=== PATIENT | male | born 1945 | race Caucasian/White ===

== ENCOUNTER 2020-06-27 15:38 | Inpatient (IN) | payer MEDICARE ==
[~2020-06-27] VITALS: Ht 188 cm; Wt 140.8 kg
--- NOTE | 2020-06-27 16:05 | NUR ---
ANDREI PACE FROM [facility] FOR HYPOXIA. PT REPORTS PNEUMONIA DX X2 WEEKS AGO WHICH PT HAD COMPLETED A 10 DAY COURSE OF ABX. PT REPORTS RELIEF FROM SOB AND CHEST PRESSURE 4 DAYS INTO ABX. NOW WORSENING SOB, PERSISTENT COUGH. PT ON 2L NC, RESPIRATIONS EVEN AND UNLABORED. SOMEWHAT LABORED WITH EXERTION. PT ON [employer] COORDINATOR, SPO2, BP CUFF. AWAITING MICHAEL OSEGUERA.
--- NOTE | 2020-06-27 16:15 | NUR ---
PT UP TO BEDSIDE COMMODE INDEPENDENTLY. DENIES FURTHER NEEDS AT THIS TIME. CALL LIGHT IN REACH, TISSUE PROVIDED.
--- NOTE | 2020-06-27 16:20 | NUR ---
REPORT TO VESNA DANIELLE.
[2020-06-27] MEDS ORDERED: LISINOPRIL PO (16:26)
[2020-06-27] MEDS ORDERED: ASPI81TA45 PO (16:26)
[2020-06-27] MEDS ORDERED: WATER PILL PO (16:26)
[2020-06-27] MEDS ORDERED: SODIUM CHLORIDE FLUSH 10ML SYR IVF ONE (16:30)
[2020-06-27 16:45] LABS: BASOPHILS % (AUTO) 1 % (0-1); EOSINOPHILS % (AUTO) 3 % (1-7); LYMPHOCYTES % (AUTO) 11 % (22-44); MEAN CORPUSCULAR HEMOGLOBIN 29.2 pg (27.5-34.5); MEAN PLATELET VOLUME 6.9 fL (7.4-10.4); MONOCYTES % (AUTO) 11 % (2-9); NEUTROPHILS % (AUTO) 75 % (42-75); PLATELET COUNT 465 x10^3/uL (130-400); RED BLOOD COUNT 4.37 x10^6/uL (4.38-5.82); RED CELL DISTRIBUTION WIDTH 14.3 % (9.4-14.8)
[2020-06-27 16:47] LABS: MD NO
[2020-06-27 16:57] LABS: ALANINE AMINOTRANSFERASE 15 U/L (12-78); ALBUMIN 2.8 g/dL (3.4-5.0); ANION GAP 4 mmol/L (5-15); CALCIUM 9.5 mg/dL (8.5-10.1); CHLORIDE 103 mmol/L (98-107); CREATININE 0.95 mg/dL (0.7-1.3)
[2020-06-27] MEDS ORDERED: DEXAMETHASONE 4 MG/ML, 1ML IVPush ONE (17:00)
[2020-06-27] MEDS ORDERED: CEFTRIAXONE PMX 1GM/50ML 50 ML IVPB ONE (17:00)
[2020-06-27] MEDS ORDERED: PLEASE ENTER ALLERGIES MC SCH (17:00)
[2020-06-27] MEDS ORDERED: DOXYCYCLINE 100MG TABLET PO ONE (17:00)
[2020-06-27 17:01] LABS: ALKALINE PHOSPHATASE 72 U/L (45-117); BILIRUBIN,TOTAL 0.4 mg/dL (0.2-1.0); TOTAL PROTEIN 7.4 g/dL (6.4-8.2); TROPONIN I < 0.015 ng/mL (0.000-0.045)
[2020-06-27] MEDS ORDERED: CEFTRIAXONE PMX 1GM/50ML 50 ML ONE (17:15)
[2020-06-27] MEDS ORDERED: DEXAMETHASONE 4 MG/ML, 5ML ONE (17:15)
[2020-06-27] MEDS ORDERED: DOXYCYCLINE 100MG TABLET ONE (17:15)
[2020-06-27 17:31] LABS: D-DIMER (DIC) 2.35 ug/mlFEU (0.00-0.52); PROTIME 11.3 Seconds (9.6-11.5)
--- NOTE | 2020-06-27 18:29 | NUR ---
PT ABLE TO USE URINAL AT BEDSIDE WITHOUT ISSUE. BELONGINGS BAGGED AT BEDSIDE. DENIES ANY NEEDS OR CONCERNS, CALL LIGHT IN REACH.
[2020-06-27] MEDS ORDERED: DOCUSATE 100 MG CAPSULE PO PRN (20:30)
[2020-06-27] MEDS ORDERED: morphine SULFATE 10 MG/ML, 1ML IVPush PRN (20:30)
[2020-06-27] MEDS ORDERED: ACETAMINOPHEN 325 MG TABLET PO PRN (20:30)
[2020-06-27] MEDS ORDERED: ONDANSETRON 2MG/ML, 2ML IVPush PRN (20:30)
[2020-06-27] MEDS ORDERED: TEMAZEPAM 15 MG CAPSULE PO PRN (20:30)
[2020-06-27] MEDS ORDERED: ENALAPRILAT 1.25 MG/ML, 2ML IVPush PRN (20:30)
[2020-06-27] MEDS ORDERED: ENOXAPARIN 40 MG/0.4 ML SQ SCH (20:30)
[2020-06-27] MEDS ORDERED: HYDROcodone/APAP 5/325 TABLET PO PRN (20:30)
[2020-06-27] MEDS ORDERED: METHOCARBAMOL 500 MG TABLET PO PRN (20:30)
[2020-06-27] MEDS ORDERED: GUAIFENESIN/DM 200-20MG, 10ML UDC PO PRN (20:30)
[2020-06-27] MEDS ORDERED: PHARMACY MAY ADJ FOR RENAL FX MC PRN ×2 (20:30)
[2020-06-27] MEDS: FAMOTIDINE 20 MG TABLET PO SCH (21:00)
[2020-06-27] MEDS: ASCORBIC ACID 500 MG TABLET PO SCH (21:00)
[2020-06-27] MEDS: PRAZOSIN 1 MG CAPSULE PO SCH (21:00)
[2020-06-27] MEDS ORDERED: ENOXAPARIN 40 MG/0.4 ML ONE (21:28)
[2020-06-27] MEDS ORDERED: ASCORBIC ACID 500 MG TABLET ONE (21:28)
[2020-06-27] MEDS ORDERED: FAMOTIDINE 20 MG TABLET ONE (21:30)
--- NOTE | 2020-06-27 22:56 | NUR ---
Patient moved to a hospital bed for comfort. VSS, Call cortez within reach, and bed in low position. Patient was given turkey sandwich and chips at approx 2200. Offers no further complaints. will con't to monitor patient.
--- NOTE | 2020-06-27 23:28 | NUR ---
PT INADVERTENLY TOOK HIS O2 OFF, SATS DOWN TO 85%, PLACED BACK ON SATS UP.
--- NOTE | 2020-06-28 01:24 | NUR ---
SLEEPING, RR EQUAL AND UNLABORED. WILL CONTINUE TO MONITOR.
[2020-06-28 05:35] LABS: ANION GAP 5 mmol/L (5-15); CALCIUM 9.2 mg/dL (8.5-10.1); CHLORIDE 103 mmol/L (98-107); CREATININE 0.89 mg/dL (0.7-1.3); IRON LEVEL 25 mcg/dL (65-175)
[2020-06-28 05:36] LABS: BASOPHILS % (AUTO) 0 % (0-1); EOSINOPHILS % (AUTO) 0 % (1-7); LYMPHOCYTES % (AUTO) 10 % (22-44); MEAN CORPUSCULAR HEMOGLOBIN 29.2 pg (27.5-34.5); MEAN CORPUSCULAR HGB CONC 32.9 g/dL (33.2-36.2); MONOCYTES % (AUTO) 7 % (2-9); NEUTROPHILS % (AUTO) 83 % (42-75); PLATELET COUNT 461 x10^3/uL (130-400)
[2020-06-28 06:02] LABS: % IRON SATURATION 14 % (20-55); TOTAL IRON BINDING CAPACITY 176 mcg/dL (250-450)
[2020-06-28 06:21] LABS: MD SCAN
--- NOTE | 2020-06-28 06:21 | NUR ---
Pt used bedside commode independently. Patient had a large BM at that time. Offers no further complaints at this time. Patient back in bed, call light within reach. VSS
[2020-06-28] MEDS ORDERED: DEXAMETHASONE 4 MG TABLET ONE (07:26)
[2020-06-28] MEDS: DEXAMETHASONE 4 MG TABLET PO SCH ×2 (07:33→16:24)
--- NOTE | 2020-06-28 07:40 | NUR ---
VSS. PT ON 2L IN ROOM. COMPLAINTS OF MILD PAIN. GIVEN MORNING MEDICATION. WCTM.
--- NOTE | 2020-06-28 07:46 | NUR ---
Report given to VESNA Womack.
[2020-06-28] MEDS ORDERED: TAMSULOSIN 0.4 MG CAP.ER.24H PO SCH (09:00)
[2020-06-28] MEDS: CHOLECALCIFEROL 400 UNITS TABLET PO SCH (09:34)
[2020-06-28] MEDS: ZINC SULFATE 220 MG CAPSULE PO SCH (09:35)
[2020-06-28] MEDS: ENOXAPARIN 30 MG/0.3 ML SQ SCH ×2 (09:35→21:39)
[2020-06-28] MEDS: FAMOTIDINE 20 MG TABLET PO SCH ×2 (09:35→21:37)
[2020-06-28] MEDS: FINASTERIDE 5 MG TABLET PO SCH (09:35)
[2020-06-28] MEDS: metFORMIN 500 MG TABLET PO SCH ×2 (09:35→16:23)
[2020-06-28] MEDS: LISINOPRIL 20 MG TABLET PO SCH (09:35)
[2020-06-28] MEDS: ASCORBIC ACID 500 MG TABLET PO SCH ×2 (09:35→21:36)
[2020-06-28] MEDS ORDERED: METF500T17 PO (10:34)
[2020-06-28 13:12] VITALS: BP 143/73
[2020-06-28] MEDS: DIVALPROEX 125 MG CAP.SPRINK PO SCH ×2 (13:57→21:37)
[2020-06-28] MEDS: AMPICILLIN/SULBACTAM 3 GM in SODIUM CHLORIDE 0.9% 100 ML IV SCH ×2 (13:57→20:03)
[2020-06-28] MEDS: GABAPENTIN 100 MG CAPSULE PO SCH ×3 (13:57→21:37)
[2020-06-28] MEDS ORDERED: CEFTRIAXONE PMX 1GM/50ML 50 ML IVPB SCH (17:00)
[2020-06-28] MEDS ORDERED: AZITHROMYCIN 500 MG TABLET PO SCH (17:00)
[2020-06-28] MEDS ORDERED: DOXY100T PO (17:13)
[2020-06-28] MEDS ORDERED: ALBU90AE INH (17:13)
[2020-06-28 20:26] VITALS: BP 143/67
[2020-06-28] MEDS: PRAZOSIN 1 MG CAPSULE PO SCH (21:37)
[2020-06-28] MEDS: TAMSULOSIN 0.4 MG CAP.ER.24H PO SCH (21:37)
[2020-06-28] MEDS: INSULIN LISPRO 100 UNITS/ML, PEN SQ-INSULIN SCH (21:38)
[2020-06-29 00:57] VITALS: BP 148/77
[2020-06-29] MEDS: AMPICILLIN/SULBACTAM 3 GM in SODIUM CHLORIDE 0.9% 100 ML IV SCH ×4 (01:16→19:36)
[2020-06-29] MEDS: DIVALPROEX 125 MG CAP.SPRINK PO SCH ×3 (06:16→21:11)
[2020-06-29] MEDS: metFORMIN 500 MG TABLET PO SCH ×2 (07:35→16:39)
[2020-06-29] MEDS: DEXAMETHASONE 4 MG TABLET PO SCH (07:35)
[2020-06-29 07:40] VITALS: BP 147/76
[2020-06-29] MEDS: INSULIN LISPRO 100 UNITS/ML, PEN SQ-INSULIN SCH ×4 (08:00→21:12)
[2020-06-29] MEDS: FINASTERIDE 5 MG TABLET PO SCH (08:10)
[2020-06-29] MEDS: ASCORBIC ACID 500 MG TABLET PO SCH ×2 (08:10→21:10)
[2020-06-29] MEDS: CHOLECALCIFEROL 400 UNITS TABLET PO SCH (08:10)
[2020-06-29] MEDS: ZINC SULFATE 220 MG CAPSULE PO SCH (08:10)
[2020-06-29] MEDS: ENOXAPARIN 30 MG/0.3 ML SQ SCH ×2 (08:11→21:12)
[2020-06-29] MEDS: LISINOPRIL 20 MG TABLET PO SCH (08:11)
[2020-06-29] MEDS: GABAPENTIN 100 MG CAPSULE PO SCH ×3 (08:11→21:10)
[2020-06-29] MEDS: FAMOTIDINE 20 MG TABLET PO SCH ×2 (08:11→21:10)
[2020-06-29 13:28] VITALS: BP 131/70
[2020-06-29 20:02] VITALS: BP 148/69
[2020-06-29] MEDS: GUAIFENESIN ER 600 MG TABLET PO SCH (21:10)
[2020-06-29] MEDS: TAMSULOSIN 0.4 MG CAP.ER.24H PO SCH (21:11)
[2020-06-29] MEDS: PRAZOSIN 1 MG CAPSULE PO SCH (21:11)
[2020-06-29 23:16] VITALS: BP 128/57
[2020-06-30] MEDS: AMPICILLIN/SULBACTAM 3 GM in SODIUM CHLORIDE 0.9% 100 ML IV SCH ×4 (02:39→19:58)
[2020-06-30 05:25] LABS: BASOPHILS % (AUTO) 1 % (0-1); EOSINOPHILS % (AUTO) 3 % (1-7); LYMPHOCYTES % (AUTO) 16 % (22-44); MEAN CORPUSCULAR HEMOGLOBIN 28.4 pg (27.5-34.5); MEAN CORPUSCULAR HGB CONC 32.2 g/dL (33.2-36.2); MEAN PLATELET VOLUME 6.9 fL (7.4-10.4); MONOCYTES % (AUTO) 9 % (2-9); NEUTROPHILS % (AUTO) 72 % (42-75); PLATELET COUNT 506 x10^3/uL (130-400); RED BLOOD COUNT 4.69 x10^6/uL (4.38-5.82); RED CELL DISTRIBUTION WIDTH 14.2 % (9.4-14.8)
[2020-06-30 05:38] LABS: ANION GAP 6 mmol/L (5-15); CALCIUM 9.4 mg/dL (8.5-10.1); CHLORIDE 99 mmol/L (98-107)
[2020-06-30 05:39] LABS: CREATININE 1.02 mg/dL (0.7-1.3)
[2020-06-30] MEDS: DIVALPROEX 125 MG CAP.SPRINK PO SCH ×3 (05:39→19:59)
[2020-06-30 05:41] LABS: MD NO
[2020-06-30] MEDS: INSULIN LISPRO 100 UNITS/ML, PEN SQ-INSULIN SCH ×4 (07:00→21:00)
[2020-06-30 07:03] VITALS: BP 103/59
[2020-06-30] MEDS: metFORMIN 500 MG TABLET PO SCH ×2 (07:54→16:28)
[2020-06-30] MEDS: GABAPENTIN 100 MG CAPSULE PO SCH ×3 (07:55→19:59)
[2020-06-30] MEDS: LISINOPRIL 20 MG TABLET PO SCH (07:55)
[2020-06-30] MEDS: FAMOTIDINE 20 MG TABLET PO SCH ×2 (07:55→19:59)
[2020-06-30] MEDS: ASCORBIC ACID 500 MG TABLET PO SCH (07:55)
[2020-06-30] MEDS: CHOLECALCIFEROL 400 UNITS TABLET PO SCH (07:55)
[2020-06-30] MEDS: GUAIFENESIN ER 600 MG TABLET PO SCH ×2 (07:56→19:59)
[2020-06-30] MEDS: ENOXAPARIN 30 MG/0.3 ML SQ SCH ×2 (07:56→19:59)
[2020-06-30 08:02] VITALS: BP 136/77
[2020-06-30] MEDS: ZINC SULFATE 220 MG CAPSULE PO SCH (09:00)
[2020-06-30] MEDS: FINASTERIDE 5 MG TABLET PO SCH (11:24)
[2020-06-30 14:35] VITALS: BP 129/73
[2020-06-30 18:26] VITALS: BP 110/69
[2020-06-30] MEDS: TAMSULOSIN 0.4 MG CAP.ER.24H PO SCH (19:59)
[2020-06-30] MEDS: PRAZOSIN 1 MG CAPSULE PO SCH (19:59)
[2020-07-01] MEDS: AMPICILLIN/SULBACTAM 3 GM in SODIUM CHLORIDE 0.9% 100 ML IV SCH ×4 (00:36→20:18)
[2020-07-01 01:53] VITALS: BP 109/64
[2020-07-01 04:06] LABS: BASOPHILS % (AUTO) 1 % (0-1); EOSINOPHILS % (AUTO) 3 % (1-7); LYMPHOCYTES % (AUTO) 16 % (22-44); MEAN CORPUSCULAR HEMOGLOBIN 28.3 pg (27.5-34.5); MEAN CORPUSCULAR HGB CONC 32.6 g/dL (33.2-36.2); MEAN PLATELET VOLUME 6.7 fL (7.4-10.4); MONOCYTES % (AUTO) 13 % (2-9); NEUTROPHILS % (AUTO) 67 % (42-75); PLATELET COUNT 394 x10^3/uL (130-400); RED BLOOD COUNT 4.25 x10^6/uL (4.38-5.82); RED CELL DISTRIBUTION WIDTH 14.5 % (9.4-14.8)
[2020-07-01 04:13] LABS: CALCIUM 8.5 mg/dL (8.5-10.1); CHLORIDE 101 mmol/L (98-107)
[2020-07-01 04:17] LABS: ANION GAP 6 mmol/L (5-15); CREATININE 0.95 mg/dL (0.7-1.3)
[2020-07-01 04:22] LABS: MD NO
[2020-07-01] MEDS: DIVALPROEX 125 MG CAP.SPRINK PO SCH ×3 (04:56→20:18)
[2020-07-01] MEDS: INSULIN LISPRO 100 UNITS/ML, PEN SQ-INSULIN SCH ×4 (07:00→20:19)
[2020-07-01 07:02] VITALS: BP 101/57
[2020-07-01] MEDS: GABAPENTIN 100 MG CAPSULE PO SCH ×3 (07:40→20:18)
[2020-07-01] MEDS: GUAIFENESIN ER 600 MG TABLET PO SCH ×2 (07:40→20:19)
[2020-07-01] MEDS: metFORMIN 500 MG TABLET PO SCH ×2 (07:40→16:08)
[2020-07-01] MEDS: CHOLECALCIFEROL 400 UNITS TABLET PO SCH (07:40)
[2020-07-01] MEDS: ENOXAPARIN 30 MG/0.3 ML SQ SCH ×2 (07:40→20:18)
[2020-07-01] MEDS: FAMOTIDINE 20 MG TABLET PO SCH ×2 (07:41→20:19)
[2020-07-01] MEDS: LISINOPRIL 20 MG TABLET PO SCH (07:41)
[2020-07-01] MEDS ORDERED: MAGNESIUM SULFATE PMX 4GM/100M 100 ML IVPB ONE (08:00)
[2020-07-01] MEDS: FINASTERIDE 5 MG TABLET PO SCH (10:11)
[2020-07-01] MEDS ORDERED: AZIT500T10 PO (13:20)
[2020-07-01] MEDS ORDERED: GUAI600T31 PO (13:20)
[2020-07-01] MEDS ORDERED: FINA5TAB4 PO (13:20)
[2020-07-01] MEDS ORDERED: CEFD300C37 PO (13:20)
[2020-07-01] MEDS ORDERED: TAMS-11 PO (13:20)
[2020-07-01] MEDS ORDERED: GABA-826 PO (13:20)
[2020-07-01 20:15] VITALS: BP 106/62
[2020-07-01] MEDS: TAMSULOSIN 0.4 MG CAP.ER.24H PO SCH (20:19)
[2020-07-01] MEDS: PRAZOSIN 1 MG CAPSULE PO SCH (20:19)
[2020-07-02 01:54] VITALS: BP 94/64
[2020-07-02] MEDS: AMPICILLIN/SULBACTAM 3 GM in SODIUM CHLORIDE 0.9% 100 ML IV SCH ×2 (01:54→07:30)
[2020-07-02] MEDS: DIVALPROEX 125 MG CAP.SPRINK PO SCH (05:32)
[2020-07-02] MEDS: INSULIN LISPRO 100 UNITS/ML, PEN SQ-INSULIN SCH ×2 (07:25→11:10)
[2020-07-02] MEDS: ENOXAPARIN 30 MG/0.3 ML SQ SCH (07:26)
[2020-07-02] MEDS: GUAIFENESIN ER 600 MG TABLET PO SCH (07:27)
[2020-07-02] MEDS: metFORMIN 500 MG TABLET PO SCH (07:27)
[2020-07-02] MEDS: FINASTERIDE 5 MG TABLET PO SCH (07:28)
[2020-07-02] MEDS: CHOLECALCIFEROL 400 UNITS TABLET PO SCH (07:28)
[2020-07-02] MEDS: FAMOTIDINE 20 MG TABLET PO SCH (07:28)
[2020-07-02] MEDS: GABAPENTIN 100 MG CAPSULE PO SCH (07:28)
[2020-07-02] MEDS: LISINOPRIL 20 MG TABLET PO SCH (07:28)
[2020-07-02 07:31] VITALS: BP 125/75
[2020-07-02] MEDS ORDERED: CEFTRIAXONE PMX 2GM/50ML 50 ML IVPB SCH (08:00)
== END 2020-07-02 13:13 | disposition home or self-care (01) | DRG 177 ==
LOC: ED 18:21 → EDIP 19:03 → 4EST 06-28 08:16 → 3N 06-29 23:14
PROVIDERS: ADMIT Internal Medicine; ATTEND Internal Medicine
DX: J15.6 Pneumonia due to other Gram-negative bacteria (principal); J96.01 Acute respiratory failure with hypoxia; E87.1 Hypo-osmolality and hyponatremia; Z68.41 Body mass index [BMI] 40.0-44.9, adult; D64.9 Anemia, unspecified; Z66 Do not resuscitate; N40.0 Benign prostatic hyperplasia without lower urinary tract symptoms; Z20.828 Contact with and (suspected) exposure to other viral communicable diseases; E11.65 Type 2 diabetes mellitus with hyperglycemia; E66.01 Morbid (severe) obesity due to excess calories; I10 Essential (primary) hypertension; Z87.891 Personal history of nicotine dependence; Z80.42 Family history of malignant neoplasm of prostate; Z80.3 Family history of malignant neoplasm of breast
CPT/HCPCS: 36415; 71045; 71250; 80048; 80053; 82607; 82728; 82962; 83540; 83550; 83605; 83615; 83735; 83880; 84100; 84145; 84484; 85025; 85049; 85379; 85384; 85610; 85730; 86140; 87040; 87635; 93005; 93306; 96365; 99285; G0378; J0295; J0696; J1100; J1650; J1815; J3475